=== PATIENT | male | born 1940 | race Caucasian/White ===

== ENCOUNTER → 2024-11-27 | Outpatient (CLI) | payer MEDICARE | END | disposition home or self-care (01) | LOC: RAD 14:38 | PROVIDERS: ATTEND Chiropractor | DX: M51.360 Other intervertebral disc degeneration, lumbar region with discogenic back pain only (principal); M50.30 Other cervical disc degeneration, unspecified cervical region; M43.12 Spondylolisthesis, cervical region; M47.816 Spondylosis without myelopathy or radiculopathy, lumbar region; M43.8X6 Other specified deforming dorsopathies, lumbar region; M51.379 Other intervertebral disc degeneration, lumbosacral region without mention of lumbar back pain or lower extremity pain; M43.17 Spondylolisthesis, lumbosacral region | CPT/HCPCS: 72040; 72100 ==